=== PATIENT | male | born 1965 | race Two or more races ===

== ENCOUNTER 2023-02-13 12:55 | Emergency (ER) | payer OTHER ==
[~2023-02-13] VITALS: Ht 157.5 cm; Wt 73.9 kg
[2023-02-13] MEDS ORDERED: BRILINTA60 MG (13:06)
[2023-02-13] MEDS ORDERED: ISOSORBIDE MONO60 MG (13:06)
[2023-02-13] MEDS ORDERED: TOPROL XL25 M1 (13:06)
[2023-02-13] MEDS ORDERED: CARVEDILOL12.5 MG (13:07)
[2023-02-13 17:55] LABS: HEMATOCRIT 35.4 % (39.0-48.0); HEMOGLOBIN 11.8 g/dL (13-16.00); MEAN CORPUSCULAR HGB CONC 33.3 g/dl (32.0-36.0); PH,URINE 5.5 (5.0-8.0); PLATELET COUNT 260 K/uL (150-450); RED BLOOD COUNT 3.81 M/uL (4.00-6.00); RED CELL DISTRIBUTION WIDTH 13.4 % (11.5-14.5); URINE APPEARANCE Clear; URINE BILIRRUBIN Negative (NEGATIVE); URINE BLOOD Negative; URINE COLOR Dark Yellow; URINE GLUCOSE Negative (NEGATIVE); URINE LEUKOCYTE Negative; URINE NITRATE Negative; URINE PROTEIN Negative (NEGATIVE)
[2023-02-13 17:59] LABS: URINE BACTERIA 26.4 uL (0.0-1933); URINE EPITHELIAL CELLS 5.2 uL (0.0-38.8); URINE RBC 6.8 uL (0.0-20.8); URINE WBC 7.2 uL (0.0-23.2)
[2023-02-13 18:22] LABS: ABG PH 7.388 (7.35-7.45); ABG PO2 93.1 mmHg (80-100); ABG pCO2 44.1 mmHg (35-45)
[2023-02-13 18:23] LABS: BASE EXCESS 0.7 mmol/l; SaO2 97.1 %; Tco2 27.3 mmol/l; allen test SATISFACTORY; o2 21 %; puncture site RADIAL RIGHT
[2023-02-13 19:14] LABS: INR 0.99; PARTIAL THROMBOPLASTIN TIME 24.8 SECONDS (22.0-34.0); PROTHROMBIN TIME 10.4 SECONDS (9.0-11.5)
[2023-02-13 19:23] LABS: ALBUMIN 3.5 gm/dL (3.4-5.0); ALKALINE PHOSPHATASE 97 U/L (50-136); ALT/SGPT 25 U/L (12-78); ANION GAP 9 (10.0-20.0); AST/SGOT 12 U/L (15-37); BILIRUBIN TOTAL 0.23 mg/dL (0.3-1.2); BILIRUBIN,CONJUGATED < 0.10 mg/dL (0.0-0.2); BILIRUBIN,UNCONJUGATED 0.13 mg/dL (0.0-0.6); BLOOD UREA NITROGEN 13 mg/dL (7-18); BUN CREA RATIO 16 (7.0-25.0); CALCIUM 9.1 mg/dL (8.5-10.1); CARBON DIOXIDE 29 mEq/L (21-32); CHLORIDE 108 mmol/L (98-107); CREATININE SERUM 0.83 mg/dL (0.70-1.30); GLOBULINA 3.8 G/DL (2.4-3.5); GLUCOSE FASTING 118 mg/dL (65-100); OSMOLALITY SERUM 286 MOSM/KG (275-295); POTASSIUM 3.36 mEq/L (3.5-5.1); SODIUM 143 mmol/L (136-145); TOTAL PROTEIN 7.3 gm/dL (6.4-8.2)
[2023-02-13 19:31] LABS: LIPASE 145 U/L (13-75)
[2023-02-13] MEDS ORDERED: XANAX1 MG PO (22:06)
== END 2023-02-13 20:42 | disposition home or self-care (01) ==
LOC: ER 12:55
PROVIDERS: Emergency Medicine; Nurse Practitioner Family
DX: M94.0 Chondrocostal junction syndrome [Tietze] (principal); R07.89 Other chest pain; Z95.1 Presence of aortocoronary bypass graft; I25.2 Old myocardial infarction; I10 Essential (primary) hypertension; E78.49 Other hyperlipidemia; F41.8 Other specified anxiety disorders

== ENCOUNTER 2023-02-13 22:00 | Emergency (ER) | payer OTHER ==
[~2023-02-13] VITALS: Ht 157.5 cm; Wt 73.9 kg
[~2023-02-13 22:00] MED LIST: BRILINTA60 MG; CARVEDILOL12.5 MG; ISOSORBIDE MONO60 MG; TOPROL XL25 M1
[2023-02-13] MEDS ORDERED: XANAX1 MG PO (22:06)
== END 2023-02-14 03:55 | disposition home or self-care (01) ==
LOC: ER 22:00
DX: S30.0XXA Contusion of lower back and pelvis, initial encounter (principal); W19.XXXA Unspecified fall, initial encounter; Y93.9 Activity, unspecified; Y92.89 Other specified places as the place of occurrence of the external cause; Y99.9 Unspecified external cause status